=== PATIENT | female | born 1995 | race Caucasian/White ===

== ENCOUNTER → 2018-07-10 | Outpatient (CLI) | payer BC ==
--- NOTE | 2018-07-10 13:40 | US ---
CLINICAL HISTORY: 23-year-old third trimester (EDC 05 August 2018) gravid 1 para 0 female who is "large for gestational age" (LGA). INTERPRETATION: Enlarged uterus with a single live ( heart rate 156 bpm) intrauterine gestation longitudinal lie and cephalic presentation. Amniotic fluid volume at the upper limits of normal, i.e., 17 cm (greater than 18 cm equals polyhydramnios). Placenta located posteriorly also appears large. Significance? No placental infarct or tumors. No placenta previa. measurements: Biparietal diameter 9.02 cm approximates a 36 week 4 day gestation; head circumference 33.17 cm equals a 37 week 6 day gestation; abdominal circumference 33.15 cm equals a 37 week 1 day gestation; and femur length equals a 36 week 1 day gestation for an average ultrasound age 37 weeks; estimated weight of 6 lbs. 12 oz. (3048 g). CONCLUSION: Single live 37 week intrauterine gestation; cephalic presentation; posterior placenta. Amniotic fluid index 17 cm.
== END ==
LOC: DL.US 09:49
PROVIDERS: ATTEND Family Medicine
DX: O09.03 Supervision of pregnancy with history of infertility, third trimester (principal); O99.810 Abnormal glucose complicating pregnancy; O26.843 Uterine size-date discrepancy, third trimester; Z3A.37 37 weeks gestation of pregnancy
CPT/HCPCS: 76816

== ENCOUNTER 2018-07-25 00:26 | Inpatient (IN) | payer BC ==
[2018-07-25] MEDS ORDERED: Methylergonovine 0.2 MG/1 ML Amp IM PRN (00:53)
[2018-07-25] MEDS ORDERED: Lactated Ringers 500 ML IV ONE (00:53)
[2018-07-25] MEDS ORDERED: Tranexamic Acid 1,000 MG in Sodium Chloride 0.9% 100 ML IV PRN ×2 (00:53→05:02)
[2018-07-25] MEDS ORDERED: Sodium Chloride 0.9% 10 ML Syringe FLUSH PRN ×2 (00:53→05:02)
[2018-07-25] MEDS ORDERED: Misoprostol 400 MCG (4 X 100 MCG TAB) RECTAL PRN ×2 (00:53→05:02)
[2018-07-25] MEDS ORDERED: Lidocaine 1% 30 ML SDV INJECT PRN (00:53)
[2018-07-25] MEDS ORDERED: Ondansetron 4 MG/2 ML SDV IV PRN (00:53)
[2018-07-25] MEDS ORDERED: Carboprost Tromethamine 250 MCG/1 ML Amp IM PRN ×2 (00:53→05:02)
[2018-07-25] MEDS ORDERED: Lactated Ringers 1,000 ML IV SCH (01:00)
[2018-07-25] MEDS ORDERED: Oxytocin/Normal Saline 30 UNIT/500 ML BAG IV SCH (01:00)
[2018-07-25] MEDS ORDERED: Benzocaine/Menthol 20%-0.5% Spray 56 GM Canister TOP PRN (05:02)
[2018-07-25] MEDS ORDERED: Zolpidem 5 MG Tab PO PRN (05:02)
[2018-07-25] MEDS ORDERED: Oxytocin 10 Units/1 ML SDV IM PRN (05:02)
[2018-07-25] MEDS ORDERED: Simethicone 80 MG Tab.Chew PO PRN (05:02)
--- NOTE | 2018-07-25 05:13 | PCM.DEL ---
<SoloMary Kay - Last Filed: 07/25/18 16:45> L & D Note - General Info Date of Service: 07/25/18 Vacuum Extractor Progress Note - Alternative Labor Strategies Considered Alternative Labor Strategies Considered:: Reports: Yes Strategies Considered:: Reports: Contraction Intensity Adequate, Position Changes Used to Facilitate Rotation & Descent, Rest Indications Considered:: Reports: Yes Indications:: Reports: Suspicion of Immediate or Potential Compromise Time Out:: Reports: Yes - Patient Prepared Patient Prepared:: Reports: Yes Informed Consent:: Reports: Yes, Verbal Risks: Reports: Yes Risks Include:: Reports: Laceration, Shoulder Dystocia, Maternal Injury Anesthesia/Analgesia Adequate:: Reports: Yes Comments:: Patient preferred no anesthesia. - Probability of Success High Probability of Success:: Reports: Yes Weight Estimated:: Reports: AGA Patient Diabetic:: Reports: No Pelvis Adequate:: Reports: Yes Position:: [facility] Asynclitic:: Reports: No Station:: +4 Comments:: Head was visible splitting labia 2cm between contractions. bradycardia was noted. Risk and benefits were discussed and patient gave verbal permission to proceed. Vacuum was placed at 04:40. [address] for 1 minute 20 seconds. Total time of use with contraction was 20 seconds. No pop offs. - Application Time Maximum Application Time & Number of Pop-Offs Predetermined:: Reports: Yes Type of Vacuum Used:: Reports: Low profile Vacuum Extraction: Successful - Exit Strategy Exit strategy available:: Reports: Yes - Patient Data Weight - Most Recent: 84.368 kg Lab Results Last 24 Hours: Laboratory Results - last 24 hr 07/25/18 Range/Units 01:05 WBC 8.7 (5.0-10.0) 10^3/uL RBC 4.09 L (4.2-5.4) 10^6/uL Hgb 13.7 (12.0-16.0) g/dL Hct 38.6 (37.0-47.0) % MCV 94.4 (80-100) fL MCH 33.5 (27.0-34.0) pg MCHC 35.5 H (33.0-35.0) g/dL Plt Count 159 (150-450) 10^3/uL Med Orders - Current: Current Medications Acetaminophen (Tylenol) 650 mg PO Q4H PRN PRN Reason: Pain (Mild 1-3) and fever Acetaminophen (Tylenol) 650 mg PO Q6H PRN PRN Reason: mild pain or fever Benzocaine/Menthol (Dermoplast Pain Relief [place]) 0 gm TOP Q4H PRN PRN Reason: Perineal comfort measures Carboprost Tromethamine (Hemabate Ds) 250 mcg IM ASDIRECTED PRN PRN Reason: HEMORRHAGE Carboprost Tromethamine (Hemabate Ds) 250 mcg IM ASDIRECTED PRN PRN Reason: Excessive vaginal bleeding Docusate Sodium (Colace) 100 mg PO BID PRN PRN Reason: Constipation Lactated Ringer's (Ringers, Lactated) 1,000 mls @ 125 mls/hr IV ASDIRECTED [place] Last Admin: 07/25/18 03:30 Dose: 125 mls/hr Oxytocin/Sodium Chloride (Pitocin In Ns 30 Unit/500 Ml) 30 unit in 500 mls @ 2 mls/hr IV TITRATE [place]; Protocol Last Admin: 07/25/18 04:45 Dose: 500 munits/min, 500 mls/hr Tranexamic Acid 1,000 mg/ (Sodium Chloride) 110 mls @ 660 mls/hr IV ONETIME PRN PRN Reason: Bleeding Tranexamic Acid 1,000 mg/ (Sodium Chloride) 110 mls @ 660 mls/hr IV ONETIME PRN PRN Reason: Bleeding Ibuprofen (Motrin) 800 mg PO Q8H PRN PRN Reason: Mild Pain or Fever Lidocaine HCl (Xylocaine-Mpf 1%) 30 ml INJECT ASDIRECTED PRN PRN Reason: Perineal Repair Last Admin: 07/25/18 04:48 Dose: 30 ml Methylergonovine Maleate (Methergine) 0.2 mg IM ASDIRECTED PRN PRN Reason: Hemorrhage Misoprostol (Cytotec) 800 mcg RECTAL ASDIRECTED PRN PRN Reason: Hemorrhage Misoprostol (Cytotec) 800 mcg RECTAL ONETIME PRN PRN Reason: Hemorrhage Ondansetron HCl (Zofran) 4 mg IV Q4H PRN PRN Reason: Nausea/Vomiting Oxytocin (Pitocin) 10 unit IM ONETIME PRN PRN Reason: Bleeding Prenat Multivit/Jack/Iron/Folic Ac ( Plus Iron) 1 each PO DAILY [facility] Simethicone (Simethicone) 80 mg PO Q4H PRN PRN Reason: Gas Sodium Chloride (Saline Flush) 10 ml FLUSH ASDIRECTED PRN PRN Reason: Keep Vein Open Sodium Chloride (Saline Flush) 10 ml FLUSH ASDIRECTED PRN PRN Reason: Keep Vein Open Zolpidem Tartrate (Ambien) 5 mg PO BEDTIME PRN PRN Reason: Insomnia Discontinued Medications Lactated Ringer's (Ringers, Lactated) 500 mls @ 999 mls/hr IV .BOLUS ONE Stop: 07/25/18 01:23 - My Orders Last 24 Hours: My Active Orders 07/25/18 00:53 Patient Status [ADT] Routine Communication Order [RC] ASDIRECTED Notify Provider Vital Signs OB [RC] ASDIRECTED Notify Provider [RC] PRN Up ad Tonia [RC] ASDIRECTED Vital Signs [RC] 08,20 Acetaminophen [Tylenol] 650 mg PO Q4H PRN Carboprost Tromethamine [Hemabate DS] 250 mcg IM ASDIRECTED PRN Lidocaine 1% [Xylocaine-MPF 1%] 30 ml INJECT ASDIRECTED PRN Methylergonovine [Methergine] 0.2 mg IM ASDIRECTED PRN Ondansetron [Zofran] 4 mg IV Q4H PRN Sodium Chloride 0.9% [Saline Flush] 10 ml FLUSH ASDIRECTED PRN Tranexamic Acid [Cyklokapron] 1,000 mg Sodium Chloride 0.9% [Normal Saline] 100 ml IV ONETIME miSOPROStol [Cytotec] 800 mcg RECTAL ASDIRECTED PRN Saline Lock Insert [OM.PC] Routine Resuscitation Status Routine 07/25/18 00:55 Pump Management, Intrathecal [RC] ASDIRECTED 07/25/18 01:00 Lactated Ringers [Ringers, Lactated] 1,000 ml IV ASDIRECTED Oxytocin/Normal Saline [Pitocin in NS 30 UNIT/500 ML] 30 unit in 500 ml IV TITRATE 07/25/18 05:02 Notify Provider Vital Signs OB [RC] ASDIRECTED Up ad Tonia [RC] ASDIRECTED Vital Signs [RC] PFP Acetaminophen [Tylenol] 650 mg PO Q6H PRN Benzocaine/Menthol [Dermoplast Pain Relief [place]] See Dose Instructions TOP Q4H PRN Carboprost Tromethamine [Hemabate DS] 250 mcg IM ASDIRECTED PRN Docusate Sodium [Colace] 100 mg PO BID PRN Ibuprofen [Motrin] 800 mg PO Q8H PRN Oxytocin [Pitocin] 10 unit IM ONETIME PRN Simethicone 80 mg PO Q4H PRN Sodium Chloride 0.9% [Saline Flush] 10 ml FLUSH ASDIRECTED PRN Tranexamic Acid [Cyklokapron] 1,000 mg Sodium Chloride 0.9% [Normal Saline] 100 ml IV ONETIME Zolpidem [Ambien] 5 mg PO BEDTIME PRN miSOPROStol [Cytotec] 800 mcg RECTAL ONETIME PRN Assess Lochia [WOMSER] Per Unit Routine Assess Uterine Involution [WOMSER] Per Unit Routine Breast Pump [WOMSER] Per Unit Routine Ice Therapy [OM.PC] Per Unit Routine Perineal Care [OM.PC] Per Unit Routine Saline Lock Insert [OM.PC] Urgent Sitz Bath [OM.PC] Per Unit Routine 07/25/18 09:00 Vit with Ca/FA/Iron [ Plus Iron] 1 each PO DAILY 07/26/18 06:00 CBC W/O DIFF,HEMOGRAM [HEME] Routine <Erasmo Scott - Last Filed: 07/26/18 01:10> - General Info Date of Service: 07/25/18 - Patient Data Vitals - Most Recent: Last Vital Signs Temp 98.6 F 07/25/18 20:10 Pulse 96 07/25/18 20:10 Resp 14 07/25/18 20:10 BP 113/62 07/25/18 20:10 Pulse Ox 97 07/25/18 20:10 I&O - Last 24 Hours: Intake & Output 07/25/18 07/25/18 07/26/18 14:59 22:59 06:59 Intake Total 40 1400 Balance 40 1400 Lab Results Last 24 Hours: Laboratory Results - last 24 hr 07/25/18 Range/Units 01:05 WBC 8.7 (5.0-10.0) 10^3/uL RBC 4.09 L (4.2-5.4) 10^6/uL Hgb 13.7 (12.0-16.0) g/dL Hct 38.6 (37.0-47.0) % MCV 94.4 (80-100) fL MCH 33.5 (27.0-34.0) pg MCHC 35.5 H (33.0-35.0) g/dL Plt Count 159 (150-450) 10^3/uL Med Orders - Current: Current Medications Acetaminophen (Tylenol) 650 mg PO Q4H PRN PRN Reason: Pain (Mild 1-3) and fever Last Admin: 07/25/18 22:03 Dose: 650 mg Acetaminophen (Tylenol) 650 mg PO Q6H PRN PRN Reason: mild pain or fever Benzocaine/Menthol (Dermoplast Pain Relief [place]) 0 gm TOP Q4H PRN PRN Reason: Perineal comfort measures Last Admin: 07/25/18 06:49 Dose: 1 tab Carboprost Tromethamine (Hemabate Ds) 250 mcg IM ASDIRECTED PRN PRN Reason: HEMORRHAGE Carboprost Tromethamine (Hemabate Ds) 250 mcg IM ASDIRECTED PRN PRN Reason: Excessive vaginal bleeding Docusate Sodium (Colace) 100 mg PO BID PRN PRN Reason: Constipation Last Admin: 07/25/18 21:59 Dose: 100 mg Lactated Ringer's (Ringers, Lactated) 1,000 mls @ 125 mls/hr IV ASDIRECTED [place] Last Admin: 07/25/18 03:30 Dose: 125 mls/hr Oxytocin/Sodium Chloride (Pitocin In Ns 30 Unit/500 Ml) 30 unit in 500 mls @ 2 mls/hr IV TITRATE [place]; Protocol Last Titration: 07/25/18 08:25 Dose: Infused Tranexamic Acid 1,000 mg/ (Sodium Chloride) 110 mls @ 660 mls/hr IV ONETIME PRN PRN Reason: Bleeding Tranexamic Acid 1,000 mg/ (Sodium Chloride) 110 mls @ 660 mls/hr IV ONETIME PRN PRN Reason: Bleeding Ibuprofen (Motrin) 800 mg PO Q8H PRN PRN Reason: Mild Pain or Fever Last Admin: 07/25/18 17:16 Dose: 800 mg Lidocaine HCl (Xylocaine-Mpf 1%) 30 ml INJECT ASDIRECTED PRN PRN Reason: Perineal Repair Last Admin: 07/25/18 04:48 Dose: 30 ml Methylergonovine Maleate (Methergine) 0.2 mg IM ASDIRECTED PRN PRN Reason: Hemorrhage Misoprostol (Cytotec) 800 mcg RECTAL ASDIRECTED PRN PRN Reason: Hemorrhage Misoprostol (Cytotec) 800 mcg RECTAL ONETIME PRN PRN Reason: Hemorrhage Ondansetron HCl (Zofran) 4 mg IV Q4H PRN PRN Reason: Nausea/Vomiting Oxytocin (Pitocin) 10 unit IM ONETIME PRN PRN Reason: Bleeding Prenat Multivit/Jack/Iron/Folic Ac ( Plus Iron) 1 each PO DAILY [place] Last Admin: 07/25/18 10:05 Dose: 1 each Simethicone (Simethicone) 80 mg PO Q4H PRN PRN Reason: Gas Sodium Chloride (Saline Flush) 10 ml FLUSH ASDIRECTED PRN PRN Reason: Keep Vein Open Sodium Chloride (Saline Flush) 10 ml FLUSH ASDIRECTED PRN PRN Reason: Keep Vein Open Zolpidem Tartrate (Ambien) 5 mg PO BEDTIME PRN PRN Reason: Insomnia Discontinued Medications Lactated Ringer's (Ringers, Lactated) 500 mls @ 999 mls/hr IV .BOLUS ONE Stop: 07/25/18 01:23 Last Admin: 07/25/18 06:36 Dose: Not Given - Problem List Review Problem List Initiated/Reviewed/Updated: Yes - My Orders Last 24 Hours: My Active Orders 07/25/18 14:34 Consult to Bottle Sorter [CONS] Routine 07/25/18 Breakfast Regular Diet [DIET] - Plan Plan:: i have seen this patient, performed procedure - see my other note as well. done in conjunction with medical student
[2018-07-25] MEDS: Ibuprofen 800 MG Tab PO PRN ×2 (06:48→17:16)
--- NOTE | 2018-07-25 09:43 | DEL ---
DATE: 07/25/2018 PREOPERATIVE DIAGNOSES: 1. Intrauterine at 38 and 2/7th weeks, confirmed by 17 and 2/7th weeks' ultrasound. 2. Active labor upon admission. 3. Group B streptococcus negative. 4. Impaired glucose tolerance. 5. History of infertility requiring Femara and Ovidrel and then progesterone for this . 6. 1, para 0. POSTOPERATIVE DIAGNOSES: 1. Intrauterine at 38 and 2/7th weeks, confirmed by 17 and 2/7th weeks' ultrasound - delivered. 2. Active labor upon admission. 3. Group B streptococcus negative. 4. Impaired glucose tolerance. 5. History of infertility requiring Femara and Ovidrel and then progesterone for this . 6. 1, para 0. 7. bradycardia. 8. First-degree perineal laceration - repaired. PROCEDURE PERFORMED: NST, artificial rupture of membranes, vacuum-assisted vaginal delivery with first-degree perineal laceration - repaired. TRANSIT DEPARTMENT CLERK: Mary Kay Banda MS-III. ANESTHESIA/ANALGESIA: The patient did receive 1% lidocaine without epinephrine, approximately 6 mL for local repair with good anesthetic result. ESTIMATED BLOOD LOSS: 200. FINDINGS: Male, scores and weight are pending. SUMMARY OF EVENTS: The patient is a 23-year-old, G1, P0, intrauterine at 38 and 2/7th weeks, confirmed by 17 and 2/7th weeks' ultrasound, with history of infertility requiring Femara, Ovidrel and then progesterone for this , presented in active labor with advanced cervical dilation. She subsequently had an NST performed. Then, as she was 6+ cm and continued to progress with labor, artificial rupture of membranes was done yielding copious amounts of clear fluid around approximately 110. Subsequently, the patient rapidly progressed with continued cervical dilation and was found to be complete at approximately 3:30. Subsequently, the patient started pushing with contractions, vertex and descent was noted. This continued and vertex was noted to be approximately 2 cm outside the vaginal introitus with pushing. bradycardia ensued between contractions and difficult to monitor with contractions with pushing. Discussion then ensued in regard to [place] vacuum- assisted vaginal delivery. I did discuss with her and her male partner risks, benefits, alternatives, and complications of this. They understood and agreed and wished to proceed. Verbal consent was obtained and questions were answered. Subsequently, vacuum was applied in between contractions, and with the next contraction with the patient pushing, it was pumped up to the green, and with gentle pulling pressure using the small cup Kiwi with watching the pressure with pulling, keeping it below the red zone, further vertex descent was noted and subsequently vertex was delivered. Vacuum was on the vertex for less than a minute and 20 seconds and pumped up to the green for less than 20 seconds when used with pulling pressure to deliver baby. Please see nurse's notes for further details. Thereafter, was noted to be in a [facility] presentation. Anterior and posterior shoulder as well as rest of the infant delivered without difficulty. Mouth and nares were suctioned. Cord was doubly clamped and cut. Infant was resuscitated on mother's abdomen. Then, approximately 10 mL of cord blood was obtained for labs. Placenta was then delivered with gentle cord traction and fundal massage within 10 minutes. Perineum, vagina, and perirectal areas were examined and noted to have a first-degree perineal laceration that was bleeding. This was subsequently anesthetized with 1% lidocaine without epinephrine and repaired in usual fashion using 3-0 Vicryl. Mother and are currently stable at the time of dictation. [facility] /[id number]
--- NOTE | 2018-07-25 09:52 | OBOUT ---
DATE: 07/25/2018 DATE AND TIME OF NST: Date: 07/25/2018. Time: 0034 hours to 0054 hours. REASON FOR NST: 1. Intrauterine at 38 and 2/7th weeks, confirmed by 17 and 2/7th weeks' ultrasound. 2. Active labor. 3. GBS negative. 4. Impaired glucose tolerance. 5. History of infertility requiring Femara and Ovidrel as well as progesterone during this . 6. G1, P0. NST INTERPRETATION: During this time period, heart tone baseline is approximately 125 to 130, and there are at least two 15 x 15 beats per minute accelerations, making this strip reactive and also noted to be reassuring. Tocometer reveals potential 6 to 7 contractions felt by patient, breathing through them. ASSESSMENT/PLAN: 1. Non-stress test - reactive and reassuring. 2. Tocometer with contractions, breathing through them. PLAN: Blood pressure 124/84, heart rate 74, temperature 97.8. Appearance, breathing through her contractions. Vaginal exam reveals her to be 6 cm, 95% effaced, 0 to +1 station, vertex suspected, and artificial rupture of membranes done after discussion with the patient, yielding copious amounts of clear fluid. For admit history and physical, she was seen yesterday with history and physical done for potential induction of labor next week. This has been updated and noted in the chart. Essentially, she presented with contractions started at 2300 hours, day prior to admission, increasing in frequency and intensity to the point that they are coming every 2 to 4 minutes, felt in the lower abdomen, rated at 6-7/10 on the pain scale, nothing makes them better, time has made them worse. She denies any spotting, bleeding, or leaking up to this point in time. Otherwise, please see H and P updated and done through [facility]. For this, records were called for, reviewed, and supplemented by the patient's history. Artificial rupture of membranes as above. We will continue to follow clinically and closely. The patient understands and agrees with the above treatment plan. [facility] /[id number]
[2018-07-25] MEDS: Prenatal Multivitamin with Calcium/Folic Acid/Iron Tab PO SCH (10:05)
[2018-07-25] MEDS: Docusate Sodium 100 MG Cap PO PRN ×2 (10:05→21:59)
[2018-07-25] MEDS: Acetaminophen 325 MG Tab PO PRN ×2 (13:47→22:03)
[2018-07-26] MEDS: Ibuprofen 800 MG Tab PO PRN ×3 (06:13→22:23)
[2018-07-26] MEDS: Docusate Sodium 100 MG Cap PO PRN ×2 (09:56→22:23)
[2018-07-26] MEDS: Acetaminophen 325 MG Tab PO PRN ×2 (09:56→17:01)
[2018-07-26] MEDS: Prenatal Multivitamin with Calcium/Folic Acid/Iron Tab PO SCH (09:56)
[2018-07-27] MEDS: Ibuprofen 800 MG Tab PO PRN (06:30)
[2018-07-27] MEDS: Docusate Sodium 100 MG Cap PO PRN (09:18)
[2018-07-27] MEDS: Prenatal Multivitamin with Calcium/Folic Acid/Iron Tab PO SCH (09:18)
[2018-07-27] MEDS: Acetaminophen 325 MG Tab PO PRN (09:19)
--- NOTE | 2018-07-28 11:34 | PN ---
DATE: 07/26/2018 day #1, status post vacuum-assisted vaginal delivery with first- degree perineal laceration - repaired. SUBJECTIVE: The patient is tolerating p.o., ambulating, urinating, passing flatus. Pain is under control. She states her bleeding is under control. OBJECTIVE: Vital Signs: Temperature 98.6, heart rate 96, blood pressure 113/62, respiratory rate 14. Lungs: Clear to auscultation bilaterally. Heart: S1, S2. Regular rate and rhythm. Pelvis: Firm uterus +1 above umbilicus. No peripheral edema. No calf pain. Pending is a CBC. ASSESSMENT: 1. day #1, status post vacuum-assisted vaginal delivery with first- degree perineal laceration - repaired. 2. and will continue working with this. PLAN: We will continue to follow clinically and closely. Possible discharge discussed with the patient and her male partner. They understand and agree with the above treatment plan. [facility] /[id number]
--- NOTE | 2018-07-28 14:31 | DISCH ---
ADMITTING DIAGNOSES: 1. Intrauterine at 38-2/7th weeks, confirmed with 17-2/7th weeks' ultrasound. 2. Active labor upon admission. 3. Group B streptococcus negative. 4. Impaired glucose tolerance. 5. History of infertility with Femara and Ovidrel use in this as well as progesterone. 6. G1, P0. DISCHARGE DIAGNOSES: 1. Intrauterine at 38-2/7th weeks, confirmed with 17-2/7th weeks' ultrasound - delivered. 2. Active labor upon admission. 3. Group B streptococcus negative. 4. Impaired glucose tolerance. 5. History of infertility with Femara and Ovidrel use in this as well as progesterone. 6. G1, P0. 7. bradycardia in the 2nd stage of labor. 8. First-degree perineal laceration - repaired. PROCEDURES PERFORMED: NST, artificial rupture of membranes, and vacuum-assisted vaginal delivery with first-degree perineal laceration repaired on 07/25/2018, per Dr. Scott. HISTORY OF PRESENT ILLNESS: Please see H and P. SUMMARY OF HOSPITAL COURSE: The patient was admitted on the above date with above diagnoses, underwent the above procedures, then went on to have a vacuum- assisted vaginal delivery yielding a male, scores 8 and 9, weighing 8 pounds 11 ounces (3945 g). EBL was 200 mL. day #1, please see progress note. day #2, date of discharge, the patient was tolerating p.o., ambulating, urinating, passing flatus, and requesting discharge. PHYSICAL EXAMINATION: Vital Signs: Last set of vitals, temperature 97.2, heart rate 80, blood pressure 110/62, respiratory rate 18. Lungs: Clear to auscultation bilaterally. Heart: S1 and S2. Regular rate and rhythm. Abdomen: Firm uterus +1 below umbilicus. Extremities: No peripheral edema. No calf pain. LABORATORY DATA: Hemoglobin dropped from 13.7 down to 13 from 07/25/2018 to 07/26/2018. Platelets 159, down to 141,000. CONDITION ON DISCHARGE COMPARED TO CONDITION ON ADMISSION: Improved. DISCHARGE INSTRUCTIONS: 1. Diet: As tolerated. 2. Activity: No lifting more than 20 pounds. No sit-ups, straining, and pelvic rest for the next 6 weeks with immediate return to fertility discussed with the patient. Reasons to return or go to the emergency room were discussed with the patient in detail including, but not limited to, temperature greater than 100.4, foul- smelling discharge, red hot tender breasts, or increased vaginal bleeding. DISCHARGE MEDICATIONS: [id number] Tylenol or ibuprofen for pain and vitamins for 6 weeks. FOLLOWUP: Followup for 6-week . I did discuss with the patient reasons to return or go to the emergency room with regard to her infant. They have a followup with their infant tomorrow. [facility] /[id number]
== END 2018-07-27 10:26 | disposition home or self-care (01) | DRG 560 ==
LOC: DL.OBCHECK 00:26 → DL.OB 00:43 → OBSVTOIN 04:40 → DL.OB 04:40
PROVIDERS: ADMIT Family Medicine; ATTEND Family Medicine
PROC: 10D07Z6 Extraction of Products of Conception, Vacuum, Via Natural or Artificial Opening (ICD-10-PCS; principal; 2018-07-25)
PROC: 0HQ9XZZ Repair Perineum Skin, External Approach (ICD-10-PCS; 2018-07-25)
PROC: 10907ZC Drainage of Amniotic Fluid, Therapeutic from Products of Conception, Via Natural or Artificial Opening (ICD-10-PCS; 2018-07-25)
PROC: 4A1HXCZ Monitoring of Products of Conception, Cardiac Rate, External Approach (ICD-10-PCS; 2018-07-25)
DX: O70.0 First degree perineal laceration during delivery (principal); Z3A.38 38 weeks gestation of pregnancy; Z37.0 Single live birth
CPT/HCPCS: 36415; 59409; 85027; A9270-GY; J2001; J2590; J7120